=== PATIENT | male | born 1940 | race Caucasian/White ===

== ENCOUNTER 2022-04-05 14:16 | Observation (INO) | payer MEDICARE, BC ==
[2022-04-05] MEDS: Sodium Chloride 0.9% 1,000 ML IV SCH (14:36)
[2022-04-05] MEDS: Docusate Sodium 100 MG Cap PO SCH (20:09)
[2022-04-06] MEDS: Sodium Chloride 0.9% 1,000 ML IV SCH (02:37)
[2022-04-06 07:45] VITALS: BP 155/93; PULSE 67
[2022-04-06] MEDS: Docusate Sodium 100 MG Cap PO SCH (07:52)
[2022-04-06] MEDS ORDERED: Lisinopril 10 MG Tab PO SCH (08:00)
[2022-04-06] MEDS ORDERED: Tamsulosin 0.4 MG Cap.ER PO SCH (08:00)
[2022-04-08 07:15] LABS: HBSAG SCREEN Negative (Negative); HCV AB 0.1 s/co ratio (0.0-0.9); HEP A AB, IGM Negative (Negative); HEP B CORE AB, IGM Negative (Negative)
== END 2022-04-06 11:23 | disposition home or self-care (01) ==
LOC: LB.ED 14:16 → UNDOADMOB 15:38 → LB.MS 15:38
PROVIDERS: ADMIT Nurse Practitioner Family; ATTEND Nurse Practitioner Family
DX: E80.6 Other disorders of bilirubin metabolism (principal); R74.8 Abnormal levels of other serum enzymes; R17 Unspecified jaundice; I10 Essential (primary) hypertension; E78.00 Pure hypercholesterolemia, unspecified; M19.90 Unspecified osteoarthritis, unspecified site; Z90.49 Acquired absence of other specified parts of digestive tract; Z98.890 Other specified postprocedural states; Z87.19 Personal history of other diseases of the digestive system; Z87.81 Personal history of (healed) traumatic fracture; Z85.038 Personal history of other malignant neoplasm of large intestine; Z79.899 Other long term (current) drug therapy; Z20.822 Contact with and (suspected) exposure to COVID-19
CPT/HCPCS: 36415; 74176; 80053; 80074; 81001; 82150; 83690; 85025; 96360; 96361; 99285; A9270; G0378; J7030; U0002; 99217; 99218

== ENCOUNTER 2022-08-15 20:05 | Emergency (ER) | payer MEDICARE, BC ==
[~2022-08-15 20:05] MED LIST: Lidocaine 1% with EPINEPHrine 1:100,000 50 ML MDV INFILT ONE
[2022-08-15] MEDS ORDERED: Diphtheria/Tetanus Toxoids,Adult (Td) 0.5 ML SDV IM ONE (21:06)
[2022-08-15 22:37] VITALS: BP 133/89; PULSE 73
== END 2022-08-15 22:00 | disposition home or self-care (01) ==
LOC: LB.ED 20:05
DX: S61.012A Laceration without foreign body of left thumb without damage to nail, initial encounter (principal); Z23 Encounter for immunization; Z79.899 Other long term (current) drug therapy; Z90.49 Acquired absence of other specified parts of digestive tract; W26.8XXA Contact with other sharp object(s), not elsewhere classified, initial encounter
CPT/HCPCS: 12001; 90471; 90714; 99282-25

== ENCOUNTER 2024-09-01 13:28 | Emergency (ER) | payer MEDICARE, BC ==
[2024-09-01] MEDS: Aspirin 81 MG Tab.Chew PO ONE (13:48)
[2024-09-01] MEDS: Nitroglycerin 0.4 MG Tab.SL SL ONE (13:49)
[2024-09-01 14:02] LABS: BASOPHILS ABSOLUTE AUTO 0.01 K/uL (0.02-0.10); BASOPHILS PERCENT AUTO 0.1 % (0.0-0.5); EOSINOPHILS ABSOLUTE AUTO 0.05 K/uL (0.04-0.40); EOSINOPHILS PERCENT AUTO 0.6 % (1.0-5.0); HEMATOCRIT 41.3 % (40.0-54.0); HEMOGLOBIN 14.3 g/dL (13.0-18.0); LYMPHOCYTES ABSOLUTE AUTO 1.57 K/uL (1.50-4.00); LYMPHOCYTES PERCENT AUTO 18.3 % (20.0-40.0); MEAN CORPUSCULAR HEMOGLOBIN 32.4 pg (27.0-32.0); MEAN CORPUSCULAR HGB CONC 34.6 g/dL (31.0-35.0); MEAN CORPUSCULAR VOLUME 94 fL (76-96); MEAN PLATELET VOLUME 7.8 fL (6.0-10.0); MONOCYTES ABSOLUTE AUTO 0.41 K/uL (0.20-0.80); MONOCYTES PERCENT AUTO 4.8 % (3.0-10.0); NEUTROPHILS ABSOLUTE AUTO 6.52 K/uL (2.00-7.50); NEUTROPHILS PERCENT AUTO 76.2 % (45.0-70.0); PLATELET COUNT,PLT 132 K/uL (150-400); RED BLOOD CELL COUNT 4.41 M/uL (4.50-6.50); RED CELL DISTRIBUTION WIDTH 13.1 % (11.0-16.0); WHITE BLOOD CELL COUNT,WBC 8.6 K/uL (4.0-11.0)
[2024-09-01] MEDS ORDERED: Sodium Chloride 0.9% 10 ML Syringe FLUSH PRN (14:08)
[2024-09-01 14:25] LABS: PTT,PARTIAL THROMBOPLSTIN TIME 26.2 SECONDS (24.4-33.2)
[2024-09-01 14:28] LABS: PROTHROMBIN TIME 10.9 sec (9.0-11.5)
[2024-09-01 14:29] LABS: A/G RATIO 0.9 (0.8-2.0); ANION GAP 15.2 mmol/L (5.0-15.0); BILIRUBIN TOTAL 0.4 mg/dL (0.0-1.0); BUN/CREATININE RATIO 18.3 (6-25); CALCIUM 8.6 mg/dL (8.5-10.1); CREATININE 1.2 mg/dL (0.70-1.30); EST CRCL DRUG DOSING (CG) 34.13 mL/min; POTASSIUM,K 4.2 mmol/L (3.5-5.1); PROTEIN TOTAL,TP 6.4 g/dL (6.4-8.2)
[2024-09-01 14:30] LABS: MAGNESIUM 1.4 mg/dL (1.8-2.4)
[2024-09-01 14:31] LABS: TROPONIN I HIGH SENSITIVITY 11431.6 pg/ml (<=60.4)
[2024-09-01] MEDS: Heparin Sodium 5,000 Units/ML Vial IVPUSH ONE (15:10)
[2024-09-01] MEDS: Heparin Sodium/D5W 25,000 UNITS/500 ML BAG IV SCH (15:26)
[2024-09-01 17:18] VITALS: BP 128/66; PULSE 60
== END 2024-09-01 16:58 ==
LOC: LB.ED 13:28
DX: I21.4 Non-ST elevation (NSTEMI) myocardial infarction (principal); I10 Essential (primary) hypertension; Z90.49 Acquired absence of other specified parts of digestive tract; Z79.899 Other long term (current) drug therapy
CPT/HCPCS: 36415; 71045; 80053; 83735; 83880; 84484; 85025; 85379; 85610; 85730; 93005; 93010; 96365; 96366; 99285; 99285-25; A0425; A0428; A9270-GY; J1644